=== PATIENT | male | born 1970 ===

== ENCOUNTER 2018-08-02 10:49 | Emergency (ER) | payer BC ==
[2018-08-02 10:59] VITALS: BMI 29.8
--- NOTE | 2018-08-02 11:31 | ED PDOC ---
Arrival/HPI - General Historian: Patient - History of Present Illness Narrative History of Present Illness (Text): 08/02/18 11:27 47 y/o M with PMHx of hemorrhoids, anxiety presents to ED with complaints of rectal bleeding that has been ongoing for several months, but worsening today. Pt reports he has 3 dark red bloody bowel movements, were have had more blood than usual and were painful in nature. He reports he has noticed blood in the stool previously, but today's bloody bm were more than usual. He has been taking preparation H for alleviation rectal bleeding from hemorrhoids. He reports he doesn't have pain or straining with bowel movements. He denies any complaints of fevers, chills, headache, dizziness, cp, palpitations, sob, n/v/c/diarrhea. PMD: Dr. Carson Gonzalez Time/Duration: Prior to Arrival Symptom Onset: Gradual Severity Level: Moderate <Santa Kaplan - Last Filed: 08/02/18 14:16> <Melecio Stafford - Last Filed: 08/02/18 14:49> - General Chief Complaint: Abdominal Pain Time Seen by Provider: 08/02/18 11:02 Past Medical History - Provider Review Nursing Documentation Reviewed: Yes - Cardiac Hx Cardiac Disorders: No - Pulmonary Hx Respiratory Disorders: No - Neurological Hx Neurological Disorder: No - HEENT Hx HEENT Disorder: No - Renal Hx Renal Disorder: Yes Hx Kidney Stones: Yes - Endocrine/Metabolic Hx Endocrine Disorders: No - Hematological/Oncological Hx Blood Disorders: No - Integumentary Hx Dermatological Disorder: No - Musculoskeletal/Rheumatological Hx Musculoskeletal Disorders: No - Gastrointestinal Hx Gastrointestinal Disorders: No - Genitourinary/Gynecological Hx Genitourinary Disorders: No - Psychiatric Hx Psychophysiologic Disorder: No Hx Substance Use: No - Anesthesia Hx Anesthesia: No <Santa Kaplan - Last Filed: 08/02/18 14:16> Family/Social History - Physician Review Nursing Documentation Reviewed: Yes Family/Social History: Unknown Family HX Smoking Status: Heavy Smoker > 10 Cigarettes Daily Hx Alcohol Use: Yes Frequency of alcohol use: Few days per week Hx Substance Use: No <Santa Kaplan - Last Filed: 08/02/18 14:16> Allergies/Home Meds <Santa Kaplan - Last Filed: 08/02/18 14:16> <Melecio Stafford - Last Filed: 08/02/18 14:49> Allergies/Adverse Reactions: Allergies No Known Allergies Allergy (Verified 08/02/18 10:59) Home Medications: Home Meds Medication Instructions Recorded Confirmed Sertraline [Zoloft] 100 mg PO HS 08/02/18 08/02/18 clonazePAM [Klonopin] 0.25 tab PO HS 08/02/18 08/02/18 Review of Systems - Review of Systems Constitutional: Normal Eyes: Normal ENT: Normal Respiratory: Normal Cardiovascular: Normal. absent: Chest Pain, Palpitations Gastrointestinal: Hematochezia. absent: Hematemesis Genitourinary Male: Normal Musculoskeletal: Normal Skin: Normal Neurological: Normal. absent: Dizziness Endocrine: Normal Hemo/Lymphatic: Normal Psychiatric: Normal <Santa Kaplan - Last Filed: 08/02/18 14:16> Physical Exam Vital Signs Reviewed: Yes Vital Signs Pulse Resp BP Pulse Ox 08/02/18 10:50 78 18 152/75 H 99 Temperature: Afebrile Blood Pressure: Normal Pulse: Regular Respiratory Rate: Normal Appearance: Positive for: Well-Appearing, Non-Toxic, Comfortable Pain Distress: None Mental Status: Positive for: Alert and Oriented X 3 - Systems Exam Head: Present: Atraumatic, Normocephalic Pupils: Present: PERRL Extroacular Muscles: Present: EOMI Conjunctiva: Present: Normal Mouth: Present: Moist Mucous Membranes Neck: Present: Normal Range of Motion Respiratory/Chest: Present: Clear to Auscultation, Good Air Exchange. No: Respiratory Distress, Accessory Muscle Use Cardiovascular: Present: Regular Rate and Rhythm, Normal S1, S2. No: Murmurs Abdomen: No: Tenderness, Distention, Peritoneal Signs Rectal: Present: Occult Blood (+ FOBT), Hemorrhoids Back: Present: Normal Inspection Upper Extremity: Present: Normal Inspection. No: Cyanosis, Edema Lower Extremity: Present: Normal Inspection, NORMAL PULSES. No: Edema, CALF TENDERNESS Neurological: Present: GCS=15, CN II-XII Intact, Speech Normal Skin: Present: Warm, Dry, Normal Color. No: Rashes Psychiatric: Present: Alert, Oriented x 3, Normal Insight, Normal Concentration <Santa Kaplan Last Filed: 08/02/18 14:16> Vital Signs Pulse Resp BP Pulse Ox 08/02/18 13:21 72 19 151/93 H 100 08/02/18 13:12 72 19 151/93 H 100 08/02/18 10:50 78 18 152/75 H 99 <Melecio Stafford - Last Filed: 08/02/18 14:49> Medical Decision Making ED Course and Treatment: 08/02/18 11:45 Impression: 47 y/o M with PMHx of hemorrhoids presents to ED with painless rectal bleeding No prior notes in EMR Differential diagnosis includes but is not limited to: Internal hemorrhoids external hemorroids painless rectal bleeding Plan: Labs EKG FOBT Reassess & dispo <Santa Kaplan - Last Filed: 08/02/18 14:16> ED Course and Treatment: Seen and examined with resident. 47 y/o M p/w rectal bleeding. On exam, external hemorrhoids, no abdominal tenderness. Labs unremarkable. Vitals unremarkable. Has GI appointment for tomorrow. - Lab Interpretations Lab Results: Total Bilirubin 0.3 mg/dL (0.2-1.3) 08/02/18 11:45 AST 35 U/L (17-59) 08/02/18 11:45 ALT 49 U/L (7-56) 08/02/18 11:45 Alkaline Phosphatase 83 U/L (38-126) 08/02/18 11:45 Total Protein 7.0 g/dL (5.8-8.3) 08/02/18 11:45 Albumin 4.2 g/dL (3.0-4.8) 08/02/18 11:45 Globulin 2.8 gm/dL 08/02/18 11:45 Albumin/Globulin Ratio 1.5 (1.1-1.8) 08/02/18 11:45 <Melecio Stafford - Last Filed: 08/02/18 14:49> - PA / E BUSINESS CONSULTANT / Resident Statement CHAIM has reviewed & agrees with the documentation as recorded. CHAIM has examined the patient and agrees with the treatment plan. <Santa Kaplan - Last Filed: 08/02/18 14:16> Disposition/Present on Arrival - Present on Arrival Any Indicators Present on Arrival: No History of DVT/PE: No History of Uncontrolled Diabetes: No Urinary Catheter: No History of Decub. Ulcer: No History Surgical Site Infection Following: None - Disposition Have Diagnosis and Disposition been Completed?: Yes Disposition Time: 12:54 <Santa Kaplan - Last Filed: 08/02/18 14:16> <Melecio Stafford - Last Filed: 08/02/18 14:49> - Disposition Diagnosis: Hemorrhoids Disposition: HOME/ ROUTINE Condition: GOOD Referrals: Erlin Gardner MD [Medical Doctor] - Follow up with primary Forms: [email or web address] (Welsh)
[2018-08-02 12:02] LABS: BASO # 0.04 K/mm3 (0.0-2.0); BASO % 0.6 % (0.0-3.0); EOS # 0.4 (0.0-0.7); EOS % 5.8 % (1.5-5.0); GRAN # 3.27 (1.4-6.5); GRAN % 51.7 % (50.0-68.0); HEMOGLOBIN 14.1 g/dL (14.0-18.0); LYMPH # 2.3 (1.2-3.4); LYMPH % 35.6 % (22.0-35.0); MEAN CELL VOLUME 98.6 fl (80.0-105.0); MEAN CORPUSCULAR HEMOGLOBIN 33.6 pg (25.0-35.0); MEAN CORPUSCULAR HGB CONC 34.1 g/dl (31.0-37.0); MEAN PLATELET VOLUME 9.3 fl (7.0-11.0); MONO # 0.4 (0.1-0.6); MONO % 6.3 % (1.0-6.0); RBC 4.2 10^6/uL (3.5-6.1); RED CELL DISTRIBUTION WIDTH 13.3 % (11.5-14.5); WHITE BLOOD COUNT 6.3 10^3/uL (4.5-11.0)
[2018-08-02 12:13] LABS: ALB/GLOB RATIO 1.5 (1.1-1.8); ALBUMIN 4.2 g/dL (3.0-4.8); ALT/SGPT 49 U/L (7-56); AST/SGOT 35 U/L (17-59); BLOOD UREA NITROGEN 12 mg/dL (7-21); CALCIUM 9.6 mg/dL (8.4-10.5); GFR NON-AFRICAN AMERICAN > 60
[2018-08-02 13:13] VITALS: BP 151/93; PULSE 72; RESP 19; O2SAT 100
--- NOTE | 2018-08-02 18:47 | CARD ---
APPROVED REPORT Date of service: 08/02/2018 EKG Measurement Heart [id number] 192P5 [id number] <Conclusion> Normal sinus rhythm Left axis deviation Incomplete right bundle branch block Abnormal ECG
== END 2018-08-02 13:23 | disposition home or self-care (01) ==
LOC: ED 10:49
DX: K64.9 Unspecified hemorrhoids (principal)

== ENCOUNTER 2018-09-07 03:30 | Emergency (ER) | payer BC ==
[2018-09-07 03:35] VITALS: BMI 27.1
[2018-09-07 03:40] VITALS: O2SAT 100
--- NOTE | 2018-09-07 03:40 | PCM.RRT ---
BELLY ROLLER Nurse Assessment - Situation Date: 09/07/18 Time BELLY ROLLER was called: 03:20 BELLY ROLLER Responder Arrival Time: 03:22 BELLY ROLLER Location:: [address] [place] [address] Room Number: [id number] BELLY ROLLER Reason for Call: Chest Pain - IV IV Inserted during BELLY ROLLER?: No - Amira Coma Scale Coma Scale Eye Opening: Spontaneous Coma Scale Motor: Obeys Commands Movement Coma Scale Verbal: Confused/able to answer - Time BELLY ROLLER Ended Time BELLY ROLLER Ended: 03:30 I.Reason for BELLY ROLLER - A) Acute Change in Patient: (Select all that apply): Uncontrolled Bleeding, Hemoptysis, Hematemesis, Melena, Chest Pain Subjective: BELLY ROLLER was called for this patient, who is the significant other of patient in [phone], as a visitor to the hospital. Nursing staff found patient lying on the floor complaining of chest pain stating that he had vomited blood several times in the bathroom and in his hand. He reports that he has gastric ulcers that he has seen Dr. Gardner for in the past. He describes his chest pain as a substernal gnawing that started suddenly while he was at rest with no radiation. He has had the pain in the past and reports that its related to his gastric ulcers and diverticulitis. Patient denies any ingestion of prescribed medications, alcohol or illicit drugs prior to presentation. Patient was instructed and assisted off of the floor into the stretcher. Patient was then transported to the ED for further workup. No immediate interventions were performed until patient was in the ED. - Neurological Status (Select all that apply): Responsive, Follows Commands - Constitutional Appears: In Acute Distress - Head Head Exam: ATRAUMATIC - Respiratory Exam Respiratory Exam: Accessory Muscle Use - Cardiovascular Exam Cardiovascular Exam: REGULAR RHYTHM - GI/Abdominal Exam GI & Abdominal Exam: Tenderness (Epigastric) - Neurological Exam Neurological Exam: Awake, Oriented x3 - Extremities Exam Extremities Exam: Full ROM Plan - Assessment of Findings&Treatment Plan -Patient able to follow commands and protect his airway at this time -No signs of active hematemesis or other bleeding -Patient transferred to the ED for further workup of chest pain and hematemesis -ED attending and staff notified -call or contact centre manager team present for transfer and handoff to the ED Patient seen and assessed with attending, Dr. Richardson Gann. Yunior Rice PGY2
--- NOTE | 2018-09-07 04:05 | ED PDOC ---
Arrival/HPI - General Chief Complaint: Chest Pain Time Seen by Provider: 09/07/18 03:54 Historian: Patient - History of Present Illness Narrative History of Present Illness (Text): 09/07/18 03:58 Talat Diallo is a 47 year old male, whose past medical history includes diverticulitis and gastric ulcer, who presents to the emergency department for chest pain. Patient was initially a rapid response in 5R. Patient was visiting his girlfriend, who is currently a patient, when he began experiencing chest pain radiating down to his abdomen with associated nausea and vomiting. Patient states he has experienced similar symptoms in the past. The patient denies any fever, chills, shortness of breath, diarrhea, urinary symptoms, back pain, neck pain, headache, dizziness, or any other complaints. Time/Duration: Other (tonight) Symptom Onset: Gradual Symptom Course: Unchanged Activities at Onset: Light Past Medical History - Provider Review Nursing Documentation Reviewed: Yes - Cardiac Hx Cardiac Disorders: No - Pulmonary Hx Respiratory Disorders: No - Neurological Hx Neurological Disorder: No - HEENT Hx HEENT Disorder: No - Renal Hx Renal Disorder: Yes Hx Kidney Stones: Yes - Endocrine/Metabolic Hx Endocrine Disorders: No - Hematological/Oncological Hx Blood Disorders: No - Integumentary Hx Dermatological Disorder: No - Musculoskeletal/Rheumatological Hx Musculoskeletal Disorders: No - Gastrointestinal Hx Gastrointestinal Disorders: Yes Hx Diverticulitis: Yes - Genitourinary/Gynecological Hx Genitourinary Disorders: No - Psychiatric Hx Depression: Yes Hx Substance Use: No - Anesthesia Hx Anesthesia: No Family/Social History Family/Social History: No Known Family HX Smoking Status: Heavy Smoker > 10 Cigarettes Daily Hx Alcohol Use: Yes Hx Substance Use: No Allergies/Home Meds Allergies/Adverse Reactions: Allergies No Known Allergies Allergy (Verified 09/07/18 03:39) Home Medications: Home Meds Medication Instructions Recorded Confirmed Sertraline [Zoloft] 100 mg PO HS 08/02/18 09/07/18 clonazePAM [Klonopin] 0.25 tab PO HS 08/02/18 09/07/18 Review of Systems - Physician Review All systems were reviewed & negative as marked: Yes - Review of Systems Constitutional: Normal. absent: Fevers Eyes: Normal ENT: Normal Respiratory: Normal. absent: SOB, Cough Cardiovascular: Chest Pain Gastrointestinal: Abdominal Pain, Nausea, Vomiting. absent: Diarrhea Genitourinary Male: Normal. absent: Dysuria, Frequency, Hematuria, Urinary Output Changes Musculoskeletal: Normal. absent: Back Pain, Neck Pain Skin: Normal. absent: Rash Neurological: Normal. absent: Headache, Dizziness Endocrine: Normal Hemo/Lymphatic: Normal Psychiatric: Normal Physical Exam Vital Signs Reviewed: Yes Vital Signs Pulse Resp Pulse Ox 09/07/18 03:39 64 18 100 Temperature: Afebrile Blood Pressure: Normal Pulse: Regular Respiratory Rate: Normal Appearance: Positive for: Well-Appearing, Non-Toxic, Comfortable Pain Distress: None Mental Status: Positive for: Alert and Oriented X 3 - Systems Exam Head: Present: Atraumatic, Normocephalic Pupils: Present: PERRL Extroacular Muscles: Present: EOMI Conjunctiva: Present: Normal Mouth: Present: Moist Mucous Membranes Neck: Present: Normal Range of Motion Respiratory/Chest: Present: Clear to Auscultation, Good Air Exchange. No: Respiratory Distress, Accessory Muscle Use Cardiovascular: Present: Regular Rate and Rhythm, Normal S1, S2. No: Murmurs Abdomen: No: Tenderness, Distention, Peritoneal Signs Back: Present: Normal Inspection Upper Extremity: Present: Normal Inspection. No: Cyanosis, Edema Lower Extremity: Present: Normal Inspection. No: Edema Neurological: Present: GCS=15, CN II-XII Intact, Speech Normal Skin: Present: Warm, Dry, Normal Color. No: Rashes Psychiatric: Present: Alert, Oriented x 3, Normal Insight, Normal Concentration Medical Decision Making ED Course and Treatment: 09/07/18 03:58 Impression: 47 year old male complaining of chest pain, abdominal pain, nausea, and vomiting. Plan: -- EKG -- CXR -- Labs, troponin -- Zofran -- Pepcid -- Morphine -- Reassess and disposition Prior Visits: Notes and results from previous visits were reviewed. Progress Notes: Reviewed EKG, NSR at 60 bpm. 1st degree AV block. LAD. Incomplete RBBB. 09/07/18 05:05 CXR reviewed, shows no acute processes. Re-evaluation Time: 07:00 Reassessment Condition: Re-examined, Improved - Lab Interpretations I have reviewed the lab results: Yes - RAD Interpretation Radiology Orders: 09/07/18 03:46 CHEST PORTABLE [RAD] Stat Stand Up Forklift Operator: ED Physician - EKG Interpretation Interpreted by ED Physician: Yes Type: 12 lead EKG - Medication Orders Current Medication Orders: Discontinued Medications Famotidine (Pepcid) 20 mg IVP STAT STA Stop: 09/07/18 03:47 Ondansetron HCl (Zofran Inj) 4 mg IVP STAT STA Stop: 09/07/18 03:43 - Scribe Statement The provider has reviewed the documentation as recorded by the Mariana Stovall Provider Scribe Attestation: All medical record entries made by the Scribe were at my direction and personally dictated by me. I have reviewed the chart and agree that the record accurately reflects my personal performance of the history, physical exam, medical decision making, and the department course for this patient. I have also personally directed, reviewed, and agree with the discharge instructions and disposition. Disposition/Present on Arrival - Present on Arrival Any Indicators Present on Arrival: No History of DVT/PE: No History of Uncontrolled Diabetes: No Urinary Catheter: No History of Decub. Ulcer: No History Surgical Site Infection Following: None - Disposition Have Diagnosis and Disposition been Completed?: Yes Diagnosis: Gastro-esophageal reflux Disposition: HOME/ ROUTINE Disposition Time: 07:00 Condition: IMPROVED Discharge Instructions (ExitCare): Acid Reflux (Gastroesophageal Reflux Disease) in Adults Forms: [employer] (Upper Sorbian)
[2018-09-07 04:11] VITALS: TEMP 97.8
[2018-09-07] MEDS ORDERED: Morphine 2 mg/ml ISec IVP STA ×2 (04:18→04:45)
[2018-09-07 04:22] LABS: ALB/GLOB RATIO 1.3 (1.1-1.8); ALBUMIN 4.4 g/dL (3.0-4.8); BLOOD UREA NITROGEN 12 mg/dL (7-21); CALCIUM 9.2 mg/dL (8.4-10.5); GFR NON-AFRICAN AMERICAN > 60
[2018-09-07 04:24] LABS: BASO # 0.05 K/mm3 (0.0-2.0); BASO % 0.8 % (0.0-3.0); EOS # 0.8 (0.0-0.7); EOS % 12.1 % (1.5-5.0); HEMOGLOBIN 13.5 g/dL (14.0-18.0); LYMPH # 1.8 (1.2-3.4); LYMPH % 28.6 % (22.0-35.0); MEAN CELL VOLUME 102.7 fl (80.0-105.0); MEAN CORPUSCULAR HEMOGLOBIN 33.3 pg (25.0-35.0); MEAN CORPUSCULAR HGB CONC 32.5 g/dl (31.0-37.0); MEAN PLATELET VOLUME 9.9 fl (7.0-11.0); MONO # 0.6 (0.1-0.6); MONO % 9.5 % (1.0-6.0); RBC 4.05 10^6/uL (3.5-6.1); RED CELL DISTRIBUTION WIDTH 12.8 % (11.5-14.5); WHITE BLOOD COUNT 6.3 10^3/uL (4.5-11.0)
[2018-09-07 04:26] LABS: ALT/SGPT 19 U/L (7-56); AST/SGOT 34 U/L (17-59)
[2018-09-07 04:27] LABS: INR 0.94; PARTIAL THROMBOPLASTIN TIME 31.4 Seconds (26.9-38.3); PROTHROMBIN TIME 10.4 SECONDS (9.4-12.5)
[2018-09-07] MEDS ORDERED: Morphine 2 mg/ml ISec ONE (04:31)
[2018-09-07 04:33] LABS: TROPONIN I < 0.01 ng/mL
[2018-09-07 07:24] VITALS: BP 135/84; PULSE 68; RESP 18
--- NOTE | 2018-09-07 07:49 | RAD ---
Date of service: 09/07/2018 HISTORY: chest pain COMPARISON: No prior. FINDINGS: LUNGS: No active pulmonary disease. PLEURA: No significant pleural effusion identified, no pneumothorax apparent. CARDIOVASCULAR: No aortic atherosclerotic calcification present. Normal cardiac size. No pulmonary vascular congestion. OSSEOUS STRUCTURES: No significant abnormalities. VISUALIZED UPPER ABDOMEN: Normal. OTHER FINDINGS: None. IMPRESSION: No acute cardiopulmonary disease appreciated.
--- NOTE | 2018-09-07 15:19 | CARD ---
APPROVED REPORT Date of service: 09/07/2018 EKG Measurement Heart [id number] <Conclusion> Sinus rhythm with 1st degree AV block Left axis deviation Incomplete right bundle branch block Abnormal ECG
== END 2018-09-07 06:45 | disposition home or self-care (01) ==
LOC: ED 03:30
DX: K21.9 Gastro-esophageal reflux disease without esophagitis (principal); F17.210 Nicotine dependence, cigarettes, uncomplicated
CPT/HCPCS: 71045; 80053; 83735; 84100; 84484; 85025; 85610; 85730; 93005; 96374; 96375; 99285; J2270; J2405

== ENCOUNTER 2018-09-12 14:35 | Emergency (ER) | payer BC ==
[2018-09-12 15:54] VITALS: BMI 29.4
[2018-09-12] MEDS ORDERED: Sodium Chloride 0.9% 1,000 ML IV STA (16:13)
[2018-09-12] MEDS ORDERED: Atrop/Hyosc/Scopal/PB Elixir (120 ml) PO STA (16:17)
[2018-09-12] MEDS ORDERED: Alum-Mag Hydrox-Simethicone Susp (30 mL) PO STA (16:17)
--- NOTE | 2018-09-12 16:42 | ED PDOC ---
Arrival/HPI - General Historian: Patient - History of Present Illness Narrative History of Present Illness (Text): 09/12/18 16:40 Talat Diallo is a 47 year old male, with a past medical history of hemorrhoids, gastric ulcers, and diverticulitis, who presents to the Emergency department with hemoptysis and abdominal pain. Patient states consumption of food results in bloody bowel movements. Patient's last bloody bowel movement was yesterday. Patient is on antibiotic therapy for H. pylori. Patient denies fevers, headache, dizziness, chest pain, cough, nausea, hematemesis, vomiting, diarrhea, back pain, neck pain, or any other complaint Time/Duration: 1 week Symptom Onset: Gradual Symptom Course: Unchanged Quality: Pressure Severity Level: 10 Activities at Onset: Light Context: Home <Rodolfo Owusu - Last Filed: 09/12/18 19:47> <Carolina Rocha - Last Filed: 09/15/18 13:41> - General Chief Complaint: Abdominal Pain Past Medical History - Provider Review Nursing Documentation Reviewed: Yes - Cardiac Hx Cardiac Disorders: No - Pulmonary Hx Respiratory Disorders: No - Neurological Hx Neurological Disorder: No - HEENT Hx HEENT Disorder: No - Renal Hx Renal Disorder: Yes Hx Kidney Stones: Yes - Endocrine/Metabolic Hx Endocrine Disorders: No - Hematological/Oncological Hx Blood Disorders: No - Integumentary Hx Dermatological Disorder: No - Musculoskeletal/Rheumatological Hx Musculoskeletal Disorders: No - Gastrointestinal Hx Gastrointestinal Disorders: Yes Hx Diverticulitis: Yes - Genitourinary/Gynecological Hx Genitourinary Disorders: No - Psychiatric Hx Psychophysiologic Disorder: Yes Hx Depression: Yes Hx Substance Use: No - Anesthesia Hx Anesthesia: No <Rodolfo Owusu Last Filed: 09/12/18 19:47> Family/Social History - Physician Review Nursing Documentation Reviewed: Yes Family/Social History: No Known Family HX Smoking Status: Heavy Smoker > 10 Cigarettes Daily Hx Alcohol Use: Yes Frequency of alcohol use: Few days per week Hx Substance Use: No <Rodolfo Owusu - Last Filed: 09/12/18 19:47> Allergies/Home Meds <Rodolfo Owusu - Last Filed: 09/12/18 19:47> <Carolina Rocha - Last Filed: 09/15/18 13:41> Allergies/Adverse Reactions: Allergies No Known Allergies Allergy (Verified 09/07/18 03:39) Home Medications: Home Meds Medication Instructions Recorded Confirmed Sertraline [Zoloft] 100 mg PO HS 08/02/18 09/07/18 clonazePAM [Klonopin] 0.25 tab PO HS 08/02/18 09/07/18 Review of Systems - Physician Review All systems were reviewed & negative as marked: Yes - Review of Systems Constitutional: absent: Fevers Respiratory: SOB. absent: Cough Cardiovascular: absent: Chest Pain Gastrointestinal: Abdominal Pain, Stool Changes, Hematochezia, Food Intolerance. absent: Diarrhea, Nausea, Vomiting, Hematemesis Musculoskeletal: absent: Back Pain, Neck Pain Neurological: absent: Headache, Dizziness <BosompemJulioRodolfo - Last Filed: 09/12/18 19:47> Physical Exam - Physical Exam Narrative Physical Exam (Text): 09/12/18 16:40 Performed Rectal Exam Product Scientist: Rodrick Torres Vital Signs Reviewed: Yes Vital Signs Temp Pulse Resp BP Pulse Ox 09/12/18 15:53 98.4 F 64 18 131/89 100 Temperature: Afebrile Blood Pressure: Normal Pulse: Regular Respiratory Rate: Normal Appearance: Positive for: Well-Appearing, Non-Toxic, Comfortable Pain Distress: None Mental Status: Positive for: Alert and Oriented X 3 - Systems Exam Head: Present: Atraumatic, Normocephalic Pupils: Present: PERRL Extroacular Muscles: Present: EOMI Conjunctiva: Present: Normal Mouth: Present: Moist Mucous Membranes Neck: Present: Normal Range of Motion Respiratory/Chest: Present: Clear to Auscultation, Good Air Exchange. No: Respiratory Distress, Accessory Muscle Use Cardiovascular: Present: Regular Rate and Rhythm, Normal S1, S2. No: Murmurs Abdomen: Present: Tenderness (epigastric tenderness), Distention. No: Peritoneal Signs Rectal: Present: Hemorrhoids (external non-thrombosed hemorrhoids at 3,6,9, and 12 positions), Other (Pain on insertion into rectal wall). No: Occult Blood Back: Present: Normal Inspection Upper Extremity: Present: Normal Inspection. No: Cyanosis, Edema Lower Extremity: Present: Normal Inspection. No: Edema Neurological: Present: GCS=15, Speech Normal Skin: Present: Warm, Normal Color, Diaphoretic. No: Rashes Psychiatric: Present: Alert, Oriented x 3, Normal Insight, Normal Concentration <BosJulio aguilayl - Last Filed: 09/12/18 19:47> Vital Signs Temp Pulse Resp BP Pulse Ox 09/12/18 23:23 58 L 17 105/75 99 09/12/18 19:25 61 17 116/88 100 09/12/18 15:53 98.4 F 64 18 131/89 100 <Carolina Rocha - Last Filed: 09/15/18 13:41> Medical Decision Making ED Course and Treatment: 09/12/18 16:40 Impression: Patient is a 47 year old male who presents to the Emergency department with complaints of hemopytsis and abdominal pain. Differential Diagnosis included but are not limited to: Plan: -- Labs -- CT Chest / Abdomen / Pelvis w/ IV contrast -- EKG -- -- Maalox -- Pepcid -- Reglan -- IV Fluids -- Urine Culture -- Urinalysis -- Reassess and disposition Prior Visits: Notes and results from previous visits were reviewed. Progress Notes: - RAD Interpretation Radiology Orders: 09/12/18 16:01 CHEST,ABD,PEL W/IV CONT ONLY [CT] Stat - EKG Interpretation EKG Interpretation (Text): 09/12/18 16:23 Reviewed EKG, shows: NSR at 66 BPM. 1st degree AV block. No ST elevation. Interpreted by ED Physician: Yes Type: 12 lead EKG - Medication Orders Current Medication Orders: Sodium Chloride (Sodium Chloride 0.9%) 1,000 mls @ 999 mls/hr IV .Q1H1M STA Stop: 09/12/18 17:13 Discontinued Medications Al Hydrox/Mg Hydrox/Simethicone (Maalox Plus 30 Ml) 30 ml PO STAT STA Stop: 09/12/18 16:18 Belladonna/Phenobarbital ( Elixir) 5 ml PO STAT STA Stop: 09/12/18 16:18 Famotidine (Pepcid) 20 mg IVP STAT STA Stop: 09/12/18 16:18 Metoclopramide HCl (Reglan) 10 mg IVP STAT STA Stop: 09/12/18 16:18 <Julio Owusuyl - Last Filed: 09/12/18 19:47> ED Course and Treatment: 09/13/18 00:30 Informed by nurse that patient has no disposition. The patient was not signed out to me. I looked up his records immediately and spoke to the family. Discussed results of workup. Patient said he wanted to leave and would follow up with his own doctor. - Lab Interpretations Lab Results: pO2 34 mm/Hg (30-55) 09/12/18 17:10 VBG pH 7.30 (7.32-7.43) L 09/12/18 17:10 VBG pCO2 63.0 (40-60) H 09/12/18 17:10 VBG HCO3 31.0 mmol/l (21-28) H 09/12/18 17:10 VBG Total CO2 32.9 mmol.L (22-28) H 09/12/18 17:10 VBG O2 Sat (Calc) 70.4 % (40-65) H 09/12/18 17:10 VBG Base Excess 2.8 mmol/L (0.0-2.0) H 09/12/18 17:10 VBG Potassium 3.6 mmol/L (3.6-5.2) 09/12/18 17:10 Sodium 140.0 mmol/L (132-148) 09/12/18 17:10 Chloride 105.0 mmol/L (98-107) 09/12/18 17:10 Glucose 90 mg/dl (75-110) 09/12/18 17:10 Lactate 0.8 mmol/L (0.7-2.1) 09/12/18 17:10 FiO2 21.0 % 09/12/18 17:10 Total Bilirubin 0.5 mg/dL (0.2-1.3) 09/12/18 17:31 AST 60 U/L (17-59) H D 09/12/18 17:31 ALT 53 U/L (7-56) 09/12/18 17:31 Alkaline Phosphatase 61 U/L (38-126) 09/12/18 17:31 Total Protein 7.2 g/dL (5.8-8.3) 09/12/18 17:31 Albumin 4.2 g/dL (3.0-4.8) 09/12/18 17:31 Globulin 3.0 gm/dL 09/12/18 17:31 Albumin/Globulin Ratio 1.4 (1.1-1.8) 09/12/18 17:31 Urine Color Yellow (YELLOW) 09/12/18 23:05 Urine Appearance Clear (CLEAR) 09/12/18 23:05 Urine pH 6.5 (4.7-8.0) 09/12/18 23:05 Ur Specific [place] 1.020 (1.005-1.035) 09/12/18 23:05 Urine Protein 30 mg/dL (<30 mg/dL) H 09/12/18 23:05 Urine Glucose (UA) Negative mg/dL (NEGATIVE) 09/12/18 23:05 Urine Ketones 15 mg/dL (NEGATIVE) H 09/12/18 23:05 Urine Blood Negative (NEGATIVE) 09/12/18 23:05 Urine Nitrate Negative (NEGATIVE) 09/12/18 23:05 Urine Bilirubin Negative (NEGATIVE) 09/12/18 23:05 Urine Urobilinogen 0.2 E.U./dL (<1 E.U./dL) 09/12/18 23:05 Ur Leukocyte Esterase Negative [place]/uL (NEGATIVE) 09/12/18 23:05 Urine RBC 0 - 2 /hpf (0-2) 09/12/18 23:05 Urine WBC 0 - 2 /hpf (0-6) 09/12/18 23:05 Ur Epithelial Cells 0 - 2 /hpf (0-5) 09/12/18 23:05 Urine Bacteria None /hpf (NONE) 09/12/18 23:05 - RAD Interpretation Radiology Orders: 09/12/18 16:01 ABD & PELVIS IV CONTRAST ONLY [CT] Stat 09/12/18 19:46 CHEST W/CONTRAST [CT] Stat - Medication Orders Current Medication Orders: Discontinued Medications Al Hydrox/Mg Hydrox/Simethicone (Maalox Plus 30 Ml) 30 ml PO STAT STA Stop: 09/12/18 16:18 Last Admin: 09/12/18 17:01 Dose: 30 ml Belladonna/Phenobarbital ( Elixir) 5 ml PO STAT STA Stop: 09/12/18 16:18 Last Admin: 09/12/18 16:59 Dose: 5 ml Famotidine (Pepcid) 20 mg IVP STAT STA Stop: 09/12/18 16:18 Last Admin: 09/12/18 17:01 Dose: 20 mg IVP Administration Document 09/12/18 17:01 EQ (Rec: 09/12/18 17:01 EQ [facility] [place]-20) Charges for Administration # of IVP Administrations 1 Sodium Chloride (Sodium Chloride 0.9%) 1,000 mls @ 999 mls/hr IV .Q1H1M STA Stop: 09/12/18 17:13 Last Admin: 09/12/18 17:02 Dose: 999 mls/hr eMAR Start Stop Document 09/12/18 17:02 EQ (Rec: 09/12/18 17:02 EQ [facility] [place]-20) Intravenous Solution Start Date 09/12/18 Start Time 17:02 Metoclopramide HCl (Reglan) 10 mg IVP STAT STA Stop: 09/12/18 16:18 Last Admin: 09/12/18 17:00 Dose: 10 mg IVP Administration Document 09/12/18 17:00 EQ (Rec: 09/12/18 17:00 EQ [facility] [place]-20) Charges for Administration # of IVP Administrations 1 <Carolina Rocha - Last Filed: 09/15/18 13:41> - Scribe Statement The provider has reviewed the documentation as recorded by the Scribe Rodrick Torres All medical record entries made by the Scribe were at my direction and personally dictated by me. I have reviewed the chart and agree that the record accurately reflects my personal performance of the history, physical exam, medical decision making, and the department course for this patient. I have also personally directed, reviewed, and agree with the discharge instructions and disposition. <Rodolfo Owusu - Last Filed: 09/12/18 19:47> Disposition/Present on Arrival - Present on Arrival History of DVT/PE: No History of Uncontrolled Diabetes: No Urinary Catheter: No History of Decub. Ulcer: No History Surgical Site Infection Following: None <Rodolfo Owusu - Last Filed: 09/12/18 19:47> - Present on Arrival Any Indicators Present on Arrival: No History of DVT/PE: No History of Uncontrolled Diabetes: No Urinary Catheter: No History of Decub. Ulcer: No History Surgical Site Infection Following: None - Disposition Have Diagnosis and Disposition been Completed?: Yes Disposition Time: 00:30 Patient Plan: Discharge <Carolina Rocha - Last Filed: 09/15/18 13:41> - Disposition Diagnosis: Hemoptysis, Abdominal pain Disposition: HOME/ ROUTINE Condition: STABLE Discharge Instructions (ExitCare): Acute Abdomen (Belly Pain), Adult (DC), Coughing up Blood Additional Instructions: TALAT DIALLO, thank you for letting us take care of you today. You were treated for stomach pain. The emergency medical care you received today was directed at your acute symptoms. If you were prescribed any medication, please fill it and take as directed. It may take several days for your symptoms to resolve. Return to the Emergency Department if your symptoms worsen, do not improve, or if you have any other problems. Please contact your doctor in 1-2 days for a follow up visit. Bring any paperwork you were given at discharge with you along with any medications you are taking to your follow up visit. Our treatment cannot replace ongoing medical care by a primary care provider outside of the emergency department. Thank you for allowing the [facility] team to be part of your care today. If you had an X-Ray or CT scan: A Radiologist will review the ED reading if any change in treatment is needed we will contact you. If you had a blood, urine, or wound culture: It will take several days for the results, if any change in treatment is needed we will contact you. If you had an STI test: It will take 48 hours for the results. Please call after 1 week if you have not heard back. Forms: [employer] (Japanese), WORK NOTE
[2018-09-12] MEDS ORDERED: Iohexol 350 MG/100 ML VIAL ONE ×2 (17:11→19:48)
[2018-09-12 17:38] LABS: VENOUS BLOOD GAS BASE EXCESS 2.8 mmol/L (0.0-2.0); VENOUS BLOOD GAS PO2 34 mm/Hg (30-55)
[2018-09-12 17:39] LABS: BASO # 0.03 K/mm3 (0.0-2.0); BASO % 0.5 % (0.0-3.0); EOS # 0.2 (0.0-0.7); EOS % 3.6 % (1.5-5.0); HEMOGLOBIN 13.2 g/dL (14.0-18.0); LYMPH % 32.7 % (22.0-35.0); MEAN CELL VOLUME 101.8 fl (80.0-105.0); MEAN CORPUSCULAR HEMOGLOBIN 33.2 pg (25.0-35.0); MEAN CORPUSCULAR HGB CONC 32.7 g/dl (31.0-37.0); MEAN PLATELET VOLUME 9.5 fl (7.0-11.0); MONO # 0.5 (0.1-0.6); MONO % 8.8 % (1.0-6.0); RBC 3.97 10^6/uL (3.5-6.1); RED CELL DISTRIBUTION WIDTH 12.8 % (11.5-14.5); WHITE BLOOD COUNT 6.1 10^3/uL (4.5-11.0)
[2018-09-12 18:02] LABS: ALB/GLOB RATIO 1.4 (1.1-1.8); ALBUMIN 4.2 g/dL (3.0-4.8); ALT/SGPT 53 U/L (7-56); AST/SGOT 60 U/L (17-59); BLOOD UREA NITROGEN 14 mg/dL (7-21); CALCIUM 9.6 mg/dL (8.4-10.5); GFR NON-AFRICAN AMERICAN > 60
[2018-09-12 19:56] VITALS: RESP 17
--- NOTE | 2018-09-12 22:20 | CARD ---
APPROVED REPORT Date of service: 09/12/2018 EKG Measurement Heart [id number] [place] [id number] <Conclusion> Sinus rhythm with 1st degree AV block Left anterior fascicular block Abnormal ECG
[2018-09-12 23:23] VITALS: BP 105/75; PULSE 58; O2SAT 99
[2018-09-12 23:48] LABS: PH,URINE 6.5 (4.7-8.0); URINE BILIRUBIN NEGATIVE (NEGATIVE); URINE BLOOD NEGATIVE (NEGATIVE); URINE GLUCOSE (UA) NEGATIVE (NEGATIVE); URINE LEUKOCYTE ESTERASE NEGATIVE Leu/uL (NEGATIVE); URINE PROTEIN 30 mg/dL (<30 mg/dL); URINE UROBILINOGEN 0.2 E.U./dL (<1 E.U./dL)
[2018-09-12 23:54] LABS: URINE APPEARANCE CLEAR (CLEAR); URINE COLOR YELLOW (YELLOW)
[2018-09-13] LABS: URINE EPITHELIAL CELLS 0 - 2 /hpf (0-5); URINE RBC 0 - 2 /hpf (0-2); URINE WBC 0 - 2 /hpf (0-6)
[2018-09-13 02:03] VITALS: TEMP 98
--- NOTE | 2018-09-13 13:18 | CT ---
Date of service: 09/12/2018 PROCEDURE: CT Abdomen and Pelvis with contrast HISTORY: Hemoptysis with rectal bleeding COMPARISON: None. TECHNIQUE: Intravenous contrast dose: 100 cc Omnipaque 350. Radiation dose: Total exam DLP = 773.23 mGy-cm. This CT exam was performed using one or more of the following dose reduction techniques: Automated exposure control, adjustment of the mA and/or kV according to patient size, and/or use of iterative reconstruction technique. FINDINGS: LOWER THORAX: Unremarkable. LIVER: Unremarkable. No gross lesion or ductal dilatation. GALLBLADDER AND BILE DUCTS: Unremarkable. PANCREAS: Unremarkable. No gross lesion or ductal dilatation. SPLEEN: Unremarkable. ADRENALS: Unremarkable. No mass. KIDNEYS AND URETERS: Unremarkable. No hydronephrosis. No solid mass. VASCULATURE: Unremarkable. No aortic aneurysm. No atherosclerotic calcification or mural plaque present. BOWEL: Diverticulosis without an acute inflammatory component or other associated pathologic process. APPENDIX: A normal appendix is visualized in it's entirety. PERITONEUM: Unremarkable. No free fluid. No free air. LYMPH NODES: Unremarkable. No enlarged lymph nodes. BLADDER: Unremarkable. REPRODUCTIVE: Unremarkable. BONES: No acute fracture. OTHER FINDINGS: None. IMPRESSION: No significant or acute findings to account for/ related to the clinical presentation. Additional benign and/or incidental findings described above. Concordant findings (preliminary report) provided by [facility].
--- NOTE | 2018-09-13 13:23 | CT ---
Date of service: 09/12/2018 PROCEDURE: CT Chest with contrast HISTORY: HEMOPTOSIS COMPARISON: None available. TECHNIQUE: Contiguous axial images were obtained through the chest with intravenous contrast enhancement. Sagittal and coronal reconstructions were performed. IV contrast: 50 cc Omnipaque 300. Radiation dose: Total exam DLP = 547.49 mGy-cm. This CT exam was performed using one or more of the following dose reduction techniques: Automated exposure control, adjustment of the mA and/or kV according to patient size, and/or use of iterative reconstruction technique. FINDINGS: LUNGS: Mosaic pattern to the lungs, mild in degree and approximately symmetrical. The findings are nonspecific but likely reflect reactive lung disease, lower airway disease/bronchitis. No discrete pulmonary nodules, masses identified. MEDIASTINUM: Unremarkable thoracic aorta. No aneurysm or dissection. Cardiomegaly. No evidence of acute, significant cardiovascular disease. Main pulmonary artery unremarkable. No vascular congestion. No lymphadenopathy. No aortic atherosclerotic calcification or mural plaque present. PLEURA: No pleural fluid. No pneumothorax. BONES: No fracture. No destructive lesion. UPPER ABDOMEN: Grossly unremarkable. OTHER FINDINGS: None. IMPRESSION: Most pattern to pulmonary parenchyma with interstitial and alveolar component. Likely reactive airway disease/bronchitis. No associated masses or pulmonary nodules Concordant findings (preliminary report) provided by [facility].
== END 2018-09-13 01:45 | disposition home or self-care (01) ==
LOC: ED 14:35
DX: R04.2 Hemoptysis (principal); R10.9 Unspecified abdominal pain; Z87.442 Personal history of urinary calculi; Z87.19 Personal history of other diseases of the digestive system
CPT/HCPCS: 71260; 74177; 80053; 81001; 82803; 85025; 87086; 93005; 96374; 96375; 99283; J2765; J7030; Q9967

== ENCOUNTER 2018-11-11 22:10 | Inpatient (IN) | payer BC | END 2018-11-15 16:09 | disposition home or self-care (01) | LOC: ERH 11-12 04:27 → ED 22:10 → 3RSO 11-12 05:57 ==